=== PATIENT | female | born 1940 | race Caucasian/White ===

== ENCOUNTER → 2016-09-10 | Outpatient (CLI) | payer OTHER ==
[~2016-09-10] MED LIST: ACET-1256 PO; ACET-1311 PO; ASCA500 PO; ATV1 PO; CITA20TA9 PO; CLOP1TAB15 PO; MULT1CHW22 PO; NAPR-1169 PO; PRAV80TA2 PO; RXC5 PO; ULT50X PO
--- NOTE | 2016-09-10 09:58 | DIAGNOSTIC IMAGING REPORT ---
MRI LUMBAR SPINE W/O CONTRAST CLINICAL HISTORY: Low back pain with right leg radiculopathy. TECHNIQUE: Sagittal and axial T1, T2 and STIR images were obtained. COMPARISON STUDY: Intraoperative radiograph dated 05/14/2015 OBSERVATIONS: The vertebral bodies and posterior elements appear intact. There is no abnormal bony signal present to suggest a marrow replacement process. L1-2: There is a broadbase central disc protrusion minimally asymmetric to the left. There is mild spinal canal narrowing. There is no significant foraminal narrowing. L2-3: There is a broad-based circumferential disc protrusion minimally asymmetric to the right. There is mild spinal canal narrowing. There is no significant foraminal narrowing. L3-4: There are postsurgical changes of a discectomy and spinal fusion. There are postlaminectomy changes. There is no significant spinal or foraminal stenosis. L4-5: There are postlaminectomy changes. No focal herniations are visualized. There is no significant spinal foraminal stenosis L5-S1: There are postsurgical changes of a discectomy. There is a grade 1 spondylolisthesis of L5 on S1. There is a probable right paracentral disc protrusion. Without intravenous contrast is difficult to differentiate recurrent disc herniations from postsurgical epidural fibrosis. There is evidence of a spinal fusion with pedicle screw fixation with pedicle screws at the L3, L4, L5, and S1 levels. The conus medullaris and cauda equina appear normal. IMPRESSION: 1. Postsurgical changes of higher spinal surgery with posterior laminectomies. There are postsurgical changes of discectomies and interbody fusions at the L3-4 and L5-S1 levels. There is posterior pedicle screw fixation with L3-S1 pedicle screws. 2. Probable right paracentral disc protrusion at the L5-S1 level. 3. Small broad-based disc protrusions the L1-2, L2-3 levels with secondary mild spinal canal narrowing Electronically signed by: Rip Gongora M.D. 09/10/2016 9:57 AM Dictated Date/Time: 09/10/2016 9:46 AM
== END | disposition home or self-care (01) ==
LOC: C.MRIBC 08:38
PROVIDERS: ATTEND Pain Medicine Interventional Pain Medicine
DX: M54.16 Radiculopathy, lumbar region (principal)

== ENCOUNTER 2017-02-23 05:22 | Inpatient (IN) | payer OTHER ==
[2017-01-28 11:15] VITALS: BMI 42.0
--- NOTE | 2017-01-28 11:44 | PAT Medication Instructions ---
Service Date Jan 28, 2017. Current Home Medication List Ascorbic Acid (Vitamin C), 500 MG PO QAM Citalopram Hydrobromide (Celexa), 20 MG PO QPM Clopidogrel (Plavix), 75 MG PO QPM Multiple Vitamins W/ Minerals (Multivitamins), 1 TAB PO QAM Naproxen (Naprosyn), 500 MG PO BID PRN for Pain Pravastatin Sodium (Pravastatin Sodium), 1 TAB PO QPM Medication Instructions For Your Scheduled Surgery -Instructions to be given by prescribing physician: Clopidogrel (Plavix), 75 MG PO QPM - Hold the following medications the morning of surgery: Naproxen (Naprosyn), 500 MG PO BID PRN for Pain (otherwise okay to continue per surgeon) Ascorbic Acid (Vitamin C), 500 MG PO QAM Multiple Vitamins W/ Minerals (Multivitamins), 1 TAB PO QAM - Take the following medications as scheduled the night before surgery: Citalopram Hydrobromide (Celexa), 20 MG PO QPM Pravastatin Sodium (Pravastatin Sodium), 1 TAB PO QPM Nothing to eat or drink after midnight If you have any questions please call us at [phone] or [phone] or [phone]
[2017-01-28 12:05] LABS: BASO % 0.1 %; BASO ABS # 0.01 K/uL (0-0.2); COMPLETE YES; EOS % 3.9 %; HEMATOCRIT 45.2 % (37-47); IG% 0.3 %; LYMPH % 22.2 %; LYMPH ABS # 1.66 K/uL (1.2-3.4); MEAN CELL VOLUME 89.2 fL (80-100); MEAN CORPUSCULAR HEMOGLOBIN 29.2 pg (25-34); MEAN CORPUSCULAR HGB CONC 32.7 g/dl (32-36); MEAN PLATELET VOLUME 11.5 fL (7.4-10.4); MONO % 11.9 %; NEUT % 61.6 %; PLATELET COUNT 248 K/uL (130-400); RED BLOOD COUNT 5.07 M/uL (4.2-5.4); WHITE BLOOD COUNT 7.49 K/uL (4.8-10.8)
[2017-01-28 12:16] LABS: BUN/CREATININE RATIO 20.5 (10-20); CALCIUM 9.1 mg/dl (8.5-10.1); CREATININE 0.85 mg/dl (0.60-1.20); POTASSIUM 3.9 mmol/L (3.5-5.1)
--- NOTE | 2017-01-28 12:31 | DIAGNOSTIC IMAGING REPORT ---
TWO VIEW CHEST CLINICAL HISTORY: Preoperative examination. FINDINGS: PA and lateral chest radiographs are compared to study dated 04/23/2015. The examination is degraded by large body habitus. The heart is top normal for projection. There is atherosclerotic calcification of the thoracic aorta. Chronic interstitial thickening is unchanged. There is mild bibasilar atelectasis. The lungs and pleural spaces are otherwise clear. There is no pneumothorax. The skeletal structures are osteopenic. The bony thorax appears intact. Degenerative change is noted throughout the thoracic spine. IMPRESSION: No active disease in the chest. Electronically signed by: Collins Zamora M.D. 01/28/2017 12:30 PM Dictated Date/Time: 01/28/2017 12:29 PM
[2017-01-28 12:35] LABS: URINE APPEARANCE CLEAR (CLEAR); URINE BILIRUBIN NEG (NEG); URINE COLOR DK YELLOW; URINE EPITHELIAL CELL AUTO >30 /lpf (0-5); URINE NITRITE NEG (NEG); URINE SPECIFIC GRAVITY 1.027 (1.000-1.030); UROBILINOGEN NEG (NEG)
[2017-01-28 12:44] LABS: MANUAL MICROSCOPIC REQUIRED? NO; REVIEW REQ? YES
[2017-02-23] VITALS (9 sets, daily range): BP systolic 113–162; BP diastolic 69–85; PULSE 77–102; TEMP 36.3–36.8; O2SAT 96–98; Ht 152.4 cm; Wt 98.8 kg
[~2017-02-23] VITALS: Ht 152.4 cm; Wt 98.8 kg
[~2017-02-23 05:22] MED LIST changes: -ACET-1256 PO; -ACET-1311 PO; -ATV1 PO; -RXC5 PO; -ULT50X PO
[2017-02-23] MEDS ORDERED: CEFAZOLIN 2000 MG/60 ML D5W IV SCH (06:00)
[2017-02-23] MEDS ORDERED: LACTATED RINGER'S 1000ML 1,000 ML IV SCH (06:00)
[2017-02-23] MEDS ORDERED: ACET-1311 PO (06:47)
[2017-02-23] MEDS ORDERED: FENTANYL CITRATE INJ 50 MCG/1 ML 2 ML VIAL ONE ×5 (06:48→10:13)
[2017-02-23] MEDS ORDERED: MIDAZOLAM HCL 1 MG/ML 2ML VIAL ONE (06:48)
[2017-02-23] MEDS ORDERED: ALBUMIN HUMAN 5% 12.5 GM/250 ML VIAL IV ONE ×2 (06:52→11:05)
[2017-02-23] MEDS ORDERED: THROMBIN FOR SOLN 20000 UNIT KIT ONE (06:54)
[2017-02-23] MEDS ORDERED: SODIUM CHLORIDE 0.9% PF 50 ML VIAL ONE (06:54)
[2017-02-23] MEDS ORDERED: BACITRACIN 50000 UNIT VIAL ONE (06:54)
[2017-02-23] MEDS ORDERED: BUPIVACAINE/EPINEPHRINE 0.5% MPF 1:200,000 10 ML VIAL ONE (06:54)
[2017-02-23] MEDS ORDERED: EpHEDrine SULFATE INJ 50 MG/ML AMP IV PRN (07:30)
[2017-02-23] MEDS ORDERED: ATROPINE SULFATE 0.1 MG/ML 5ML SYR IV PRN (07:30)
[2017-02-23] MEDS ORDERED: FENTANYL CITRATE INJ 50 MCG/1 ML 2 ML VIAL IV PRN (07:30)
[2017-02-23] MEDS ORDERED: HYDROmorphone INJ 1 MG/ML SYR IV PRN (07:30)
[2017-02-23] MEDS ORDERED: ONDANSETRON INJ 2 MG/ML 2 ML VIAL IV PRN ×2 (07:30→11:15)
--- NOTE | 2017-02-23 07:38 | History & Physical Bridge Note ---
H&P Re-Evaluation Bridge Note: I have examined the patient, reviewed the History & Physical and in the interval since the performance of the History & Physical I have noted the following changes of clinical significance: No changes noted
--- NOTE | 2017-02-23 07:40 | History and Physical ---
History & Physical Date Feb 23, 2017. Chief Complaint Back and leg pain History of Present Illness The patient is a 76 year old female with complaints of back and leg pain Additional History Hepatic Disease: No Endocrine Disorder: No Kidney Disease: No Hypertension: No Heart Disease: No Bleeding Tendencies: No Infectious Diseases: No Allergies Coded Allergies: Aspirin (Verified Adverse Reaction, Unknown, GI UPSET, 02/23/17) Hydrocodone (Verified Adverse Reaction, Unknown, NAUSEA, 02/23/17) Oxycodone (Verified Adverse Reaction, Unknown, NAUSEA, 02/23/17) Home Medications Scheduled Ascorbic Acid (Vitamin C), 500 MG PO QAM Citalopram Hydrobromide (Celexa), 20 MG PO QPM Clopidogrel (Plavix), 75 MG PO QPM Multiple Vitamins W/ Minerals (Multivitamins), 1 TAB PO QAM Pravastatin Sodium (Pravastatin Sodium), 1 TAB PO QPM Scheduled PRN Acetaminophen (Tylenol), 650 MG PO Q4 PRN for Pain or Fever Naproxen (Naprosyn), 500 MG PO BID PRN for Pain Physical Examination Skin: warm/dry, no rash Eyes: normal inspection, EOMI, sclerae normal ENT: normal ENT inspection, pharynx normal Head: normocephalic, atraumatic Neck: supple, no adenopathy, trachea midline Respiratory/Chest: lungs clear, normal breath sounds, no respiratory distress Cardiovascular: regular rate, rhythm, no edema, no murmur Abdomen / GI: normal bowel sounds, non tender Back: normal inspection Extremities: normal inspection, normal range of motion Neurologic/Psych: no motor/sensory deficits, alert, normal reflexes, oriented x 3 Plan of Treatment Removal of instrumentation L3 to S1 with decompression L1-2 and fusion T12 bilateral iliac bolts
[2017-02-23] MEDS ORDERED: HYDROmorphone INJ 2 MG/ML SYR/VIAL ONE ×3 (08:07→11:30)
[2017-02-23] MEDS ORDERED: ONDANSETRON INJ 2 MG/ML 2 ML VIAL ONE ×2 (09:16→11:31)
[2017-02-23] MEDS ORDERED: PROPOFOL IV EMULSION 10 MG/ML 20 ML VIAL IV ONE (09:16)
[2017-02-23] MEDS ORDERED: ROCURONIUM BROMIDE 10 MG/ML 5 ML VIAL IV ONE (09:16)
[2017-02-23] MEDS ORDERED: RANITIDINE HCL 25 MG/ML INJ ONE (09:16)
[2017-02-23] MEDS ORDERED: LIDOCAINE HCL 2% 2 ML VIAL (20MG/ML) ONE (09:16)
[2017-02-23] MEDS ORDERED: DEXAMETHASONE SOD INJ 4 MG/ML VIAL ONE (09:16)
[2017-02-23] MEDS ORDERED: EpHEDrine SULFATE 50MG/5ML SYR ONE (10:14)
[2017-02-23] MEDS ORDERED: PHENYLEPHRINE 100MCG/ML 5ML SYR ONE (10:14)
[2017-02-23] MEDS ORDERED: FLOSEAL HEMOSTATIC MATRIX 10ML TOP ONE (10:47)
[2017-02-23] MEDS ORDERED: SODIUM CHLORIDE 0.9% 1000ML 1,000 ML IV SCH (11:13)
[2017-02-23] MEDS ORDERED: MAGNESIUM HYDROXIDE SUSP 30 ML UDC PO PRN (11:15)
[2017-02-23] MEDS ORDERED: ALUMINUM/MAGNESIUM SUSP 30 ML UDC PO PRN (11:15)
[2017-02-23] MEDS ORDERED: METOCLOPRAMIDE HCL INJ 5 MG/ML 2 ML VIAL IV PRN (11:15)
[2017-02-23] MEDS ORDERED: BISACODYL 10 MG SUPP PR PRN (11:15)
[2017-02-23] MEDS ORDERED: LORAZEPAM 0.5 MG TAB PO PRN (11:15)
[2017-02-23] MEDS ORDERED: DO NOT ADMINISTER PNEUMOCOCCAL VACCINE PRN ×2 (11:15)
[2017-02-23] MEDS ORDERED: FAMOTIDINE 20 MG TAB PO PRN (11:15)
[2017-02-23] MEDS ORDERED: PROMETHAZINE HCL INJ 12.5 MG in SODIUM CHLORIDE 0.9% 50ML 50 ML IV PRN (11:15)
[2017-02-23] MEDS ORDERED: ACETAMINOPHEN 500 MG TAB PO PRN (11:15)
[2017-02-23] MEDS ORDERED: LORAZEPAM INJ 0.5 MG in SYRINGE 0 ML IV PRN (11:15)
[2017-02-23] MEDS ORDERED: hydrOXYzine HCL 25 MG TAB PO PRN (11:15)
[2017-02-23] MEDS ORDERED: ACETAMINOPHEN IV 100 ML IV PRN (11:15)
[2017-02-23] MEDS ORDERED: DO NOT ADMINISTER FLU VACCINE PRN ×3 (11:15)
[2017-02-23] MEDS ORDERED: NALOXONE HCL 0.4 MG/1 ML VIAL/CARP IV PRN ×2 (11:15)
[2017-02-23] MEDS ORDERED: SOD PHOSPHATE/SOD BIPHOSPHATE ENEMA 132 ML BTL PR PRN (11:15)
[2017-02-23] MEDS ORDERED: NEOSTIGMINE METHYLSULFATE 1 MG/ML 10ML VIAL ONE (11:31)
[2017-02-23] MEDS ORDERED: CEFAZOLIN SOD 1 GM VIAL ONE (11:31)
[2017-02-23] MEDS ORDERED: GLYCOPYRROLATE INJ 0.2 MG/ML VIAL ONE (11:31)
[2017-02-23] MEDS ORDERED: KETOROLAC TROMETHAMINE 30 MG/ML VIAL ONE (11:31)
[2017-02-23] MEDS ORDERED: HYDROmorphone HCL 0.5MG/ML 50 ML CASSETTE ONE (11:45)
[2017-02-23] MEDS ORDERED: NURSING VERBAL MED ORDER ONE (12:00)
--- NOTE | 2017-02-23 12:04 | DIAGNOSTIC IMAGING REPORT ---
Radiology LUMBAR SPINE 2 OR 3 VIEW CLINICAL HISTORY: 76 years-old Female presenting with L1-L2 [id number] FUSION/L3-S1 REMOVAL. TECHNIQUE: 5 fluoroscopic spot image(s) obtained as part of an intraoperative procedure. COMPARISON: 05/14/2015. FINDINGS/IMPRESSION: Postsurgical changes of transpedicular screw and derrick fixation of the lumbar spine, which now bridges to the sacrum. Interbody spacers again noted. Grossly normal alignment. Please see surgical report for further details. Fluoroscopy dosage (mGy): Not available. Fluoroscopy time: 32 seconds. Number of fluoroscopic spot images: 5. Electronically signed by: David Barrera M.D. 02/23/2017 12:03 PM Dictated Date/Time: 02/23/2017 12:02 PM
[2017-02-23 12:05] LABS: HEMATOCRIT 34.1 % (37-47)
--- NOTE | 2017-02-23 12:09 | [facility] Operative Report ---
Operative Report Operative Date Feb 23, 2017. Pre-Operative Diagnosis Spinal Stenosis Post-Operative Diagnosis Spinal Stenosis Procedure(s) Performed #1 removal of posterior segmental instrumentation L3 to S1. #2 expiration of fusion L3 to S1. #3 lumbar decompression medial facetectomies foraminotomies L1 to L2 3. #4 posterior spinal fusion T12 to L3. #5 placement bilateral SI joint fusion. #6 placement of posterior segmental transportation including bilateral iliac bolts T12 to S1. #7 interbody fusion L2 3. #8 placement peek cage 11 x 22 mm at L2-3. #9 placement of locally harvested morcellized autograft in the posterior gutters. #10 placement infuse collagen sponge, mask graft the posterior lateral gutters Komal bone graft in the interbody space. Surgeon Dr Le Meat Selector Surgeon(s) Amelia Montenegro PA-C Estimated Blood Loss 1000ML Findings Severe spinal stenosis Specimens As per Surgeon A. Lumbar Spine Explants Description of Procedure Patient was met with preoperatively case discussed all questions are dressed. After informed consent patient was taken to the operative suite after intubation placed in a prone position the [place] table top Cel[place]ino frame. All bony promises well-padded eyes inspected to ensure no external pressure. The thoracal lumbar spine prepped and draped nostril fashion. Sharp dissection with the assistance of Bovie cautery was performed onto an exposing the lamina and transverse processes of T12 L1 L2 the instrumentation from L3 to S1 bilaterally. I proceeded remove the hardware bilaterally L3 to S1. Explored the fusion mass noting it to be intact. Then performed a complete laminectomy of L2 and L3 addressing severe lateral recessed foraminal disease. Pedicle screws were then placed in T12 L1 L2 L3 L4 S1 and bilateral iliac bolts placed with the assistance of fluoroscopy. Through a transforaminal approach on the right a complete discectomy of L2-3 was performed and plate created to subcortical bleeding bone and a limb by 22 mm peek cage filled with Komal bone graft tapped in position. Purposes rods were then cut contoured and locked and final position bilaterally. Transverse processes of T12-L1 L2-L3 in the bilateral SI joints were then burred to subcortical bleeding bone. Infuse collagen sponge mask graft locally harvested morcellized autograft was placed both in the SI joints as well as the posterior lateral gutters. A cross-link was locked into position. 15 round SHAR drain inserted. Incision then closed with 1 Vicryl in the fascia 2-0 Vicryl subcutaneously 4-0 Monocryl for final skin closure. Sterile dressing sterile strips placed patient awakened taken to PACU in stable condition. Please note Amelia Diez was present at the entire procedure involved in patient positioning complex portions of the procedure and final skin closure. I attest to the content of the Intraoperative Record and any orders documented therein. Any exceptions are noted below.
[2017-02-23] MEDS ORDERED: PROMETHAZINE HCL INJ 12.5 MG in SODIUM CHLORIDE 0.9% 50ML 50 ML IV SCH (12:15)
[2017-02-23] MEDS ORDERED: ESMOLOL HCL 10 MG/ML 10 ML VIAL ONE (12:37)
--- NOTE | 2017-02-23 12:39 | Anesthesiology Progress Note ---
Anesthesia Post Op Note Date & Time Feb 23, 2017 at 12:38 Vital Signs Pain Intensity: 0 Vital Signs Past 12 Hours Date Time Temp Pulse Resp B/P (MAP) Pulse Ox O2 Delivery O2 Flow Rate FiO2 02/23/17 12:30 36.0 93 18 139/63 98 Nasal Cannula 4 02/23/17 12:20 96 18 132/66 96 Nasal Cannula 4 02/23/17 12:10 93 18 143/83 95 Nasal Cannula 4 02/23/17 12:00 103 18 142/71 95 Oxymask 10 02/23/17 11:50 112 18 158/78 94 Oxymask 10 02/23/17 11:44 36.5 89 16 139/78 10 Oxymask 02/23/17 06:07 36.8 22 162/70 96 Room Air 02/23/17 05:54 36.8 77 22 162/70 96 Room Air Notes Mental Status: alert / awake / arousable, participated in evaluation Pt Amnestic to Procedure: Yes Nausea / Vomiting: adequately controlled Pain: adequately controlled Airway Patency, RR, SpO2: stable & adequate BP & HR: stable & adequate Hydration State: stable & adequate Anesthetic Complications: no major complications apparent
[2017-02-23] MEDS: HYDROmorphone HCL 0.5MG/ML 50 ML CASSETTE IV PRN ×2 (13:04→23:08)
[2017-02-23] MEDS: SODIUM CHLORIDE 0.9% 1000ML 1,000 ML IV SCH ×2 (13:30→20:16)
[2017-02-23] MEDS: CEFAZOLIN IV 2,000 MG in DEXTROSE 5% 50ML 50 ML IV SCH (15:54)
[2017-02-23] MEDS: DEXAMETHASONE INJ 6 MG in SYRINGE 0 ML IV SCH (17:43)
[2017-02-23] MEDS: DOCUSATE SODIUM/SENNA 50/8.6MG TAB PO SCH (20:18)
[2017-02-23] MEDS: CITALOPRAM 20 MG TAB PO SCH (20:23)
[2017-02-23] MEDS: PRAVASTATIN SOD 40 MG TAB PO SCH (20:23)
[2017-02-24] MEDS: CEFAZOLIN IV 2,000 MG in DEXTROSE 5% 50ML 50 ML IV SCH (00:15)
[2017-02-24] MEDS: SODIUM CHLORIDE 0.9% 1000ML 1,000 ML IV SCH (00:15)
[2017-02-24 00:28] VITALS: O2SAT 96
[2017-02-24] MEDS: DEXAMETHASONE INJ 6 MG in SYRINGE 0 ML IV SCH ×2 (01:59→10:00)
[2017-02-24 03:05] VITALS: BP 126/72; PULSE 93; TEMP 36.8; O2SAT 96
[2017-02-24 05:53] LABS: COMPLETE YES; HEMATOCRIT 27.9 % (37-47); IG% 0.3 %; LYMPH % 4.2 %; LYMPH ABS # 0.72 K/uL (1.2-3.4); MEAN CORPUSCULAR HEMOGLOBIN 30.3 pg (25-34); MEAN CORPUSCULAR HGB CONC 33.7 g/dl (32-36); MEAN PLATELET VOLUME 10.8 fL (7.4-10.4); MONO % 5.8 %; NEUT % 89.7 %; PLATELET COUNT 196 K/uL (130-400); WHITE BLOOD COUNT 17.31 K/uL (4.8-10.8)
[2017-02-24] MEDS ORDERED: HYDROmorphone INJ 0.5 MG/0.5 ML SYR IV PRN (06:00)
[2017-02-24] MEDS ORDERED: DC PCA SCH (06:00)
[2017-02-24] MEDS ORDERED: HYDROmorphone INJ 1 MG/ML SYR IV PRN (06:00)
[2017-02-24] MEDS ORDERED: NURSING DECISION MEDICATION ORDER SCH (06:30)
[2017-02-24 06:38] LABS: BUN/CREATININE RATIO 18.3 (10-20); CALCIUM 7.7 mg/dl (8.5-10.1); CREATININE 0.76 mg/dl (0.60-1.20); POTASSIUM 4.4 mmol/L (3.5-5.1)
[2017-02-24 08:14] VITALS: BP 101/70; PULSE 98; TEMP 37.1; O2SAT 93
[2017-02-24] MEDS ORDERED: ULT50X PO (10:27)
--- NOTE | 2017-02-24 10:28 | Discharge Instructions ---
Discharge Instructions Date of Service Feb 24, 2017. Admission Reason for Admission: Lumbar Spinal Stenosis Discharge Discharge Diagnosis / Problem: lumbar stenosis Discharge Goals Goal(s): Improve function Activity Recommendations Activity Limitations: per Instructions/Follow-up section . Instructions / Follow-Up Instructions / Follow-Up ACTIVITY RECOMMENDATIONS: SELF CARE INSTRUCTIONS AFTER THORACIC/LUMBAR FUSIONS 1. You may walk to your tolerance. It is good exercise for your legs and back. Expect some back and intermittent leg aches and pains. 2. You may perform "counter-top" level activities (make a sandwich, linda with a project, etc.). 3. No bending or lifting of more than 10 pounds or back twisting of any nature (roll like a log when turning in bed). 4. You may ride in a car for 20-30 minutes at a time. No driving until after your first visit with your doctor. 5. Frequent changes of position and restricting sitting to 30 minutes at a time will help limit the amount of back spasms and stiffness you may experience. 6. You may discontinue the use of ambulatory aids (cane, crutches, etc.) once your strength and confidence allow. 7. You may dictating machine transcriber the shower and let water strike your incision when you arrive home at least once daily. Do not take a tub bath, sit in a hot tub or go into a swimming pool until after your first recheck in the office. SPECIAL CARE INSTRUCTIONS: VERY IMPORTANT TO READ AND REVIEW A. Your surgical incision has been closed with a cosmetic suture under the skin that will dissolve in about 6 weeks. In 14 days, you can use a pair of clean scissors and cut the suture that is left outside of the skin at the ends of your incision. 1. The small skin tapes can be removed 7 days after surgery if they have not fallen off by that point. 2. You may keep the wound open to air as much as possible to promote healing after post-op day number 5 unless told otherwise by your doctor. 3. If you think the wound looks like it is becoming infected (redness or worsening drainage) and/or you are experiencing fever, chill or worsening back pain and muscle spasms, contact the office so that we may evaluate you as soon as possible. B. Complications are uncommon, but please contact us if you have any signs or symptoms of: 1. wound infection (fever higher than 102.5 degrees F, redness, separation of wound, drainage, or increasing pain from the incision) 2. blood clots in legs (pain, swelling, redness and warmth in legs) 3. urinary tract infection (fever higher than 102.5 degrees F, burning upon urination or increased frequency of urination) 4. nerve problems (inability to walk on your toes or heels, numbness, loss of bowel or bladder control) 5. any other symptoms that concern you C. Please call the office at if you have any concerns or questions about your operation or recovery. D. No smoking! Smoking drastically decreases the chance of a solid fusion. E. Do not take any anti-inflammatory medications (Indocin, Advil, Motrin, Aspirin, Naprosyn, etc.) as these may inhibit the chance of a solid fusion. Tylenol is okay to take for pain. MANAGING PAIN AFTER SPINAL SURGERY 1. Narcotic medication is intended for short-term use and will be provided for surgical pain. Surgical pain usually lasts for a period of 4-6 weeks. Narcotic medication includes Percocet, Vicodin, Darvocet, Tylenol #3 or Lortab. 2. Longer-term pain is more appropriately treated with non-narcotic medication such as Tylenol ES. 3. Muscle spasm is not appropriately treated with narcotics. Muscle relaxers such as Soma, Flexeril or Skelaxin can be used along with Tylenol ES. 4. Remember that we all live with some "aches and pains". This is not unusual or uncommon after an injury or as we get older. a. Back pain is expected and may include muscle spasms for 4 to 6 weeks after surgery. The pain should gradually improve. If the pain worsens for no apparent reason, please contact the office. b. Intermittent leg pain may also be experienced and should not be concerned about unless it worsens for no apparent reason. If so, please contact the office. 5. We will provide appropriate medication within the normal guidelines of their prescribed use. We will also be very cautious and aware of potential abuse and extended duration of patients' medication needs. a. Pain medications are for your comfort and to assist with sleep and rest so that the tissue can heal. They are not provided in order to return to normal activity and should not be used through the day. To do so or worsening pain at night can result from ongoing tissue damage and development of tolerance to the prescribed medicine. 6. Please allow 2-3 days to process refills. Prescriptions will not be mailed but must be picked up at the office. FOLLOW UP VISIT: Keep your scheduled follow-up appointment. Any questions, please call the office at . Current Hospital Diet Patient's current hospital diet: Regular Diet Discharge Diet Recommended Diet: Regular Diet Procedures Procedures Performed: #1 removal of posterior segmental instrumentation L3 to S1. #2 expiration of fusion L3 to S1. #3 lumbar decompression medial facetectomies foraminotomies L1 to L2 3. #4 posterior spinal fusion T12 to L3. #5 placement bilateral SI joint fusion. #6 placement of posterior segmental transportation including bilateral iliac bolts T12 to S1. #7 interbody fusion L2 3. #8 placement peek cage 11 x 22 mm at L2-3. #9 placement of locally harvested morcellized autograft in the posterior gutters. #10 placement infuse collagen sponge, mask graft the posterior lateral gutters Komal bone graft in the interbody space. Pending Studies Studies pending at discharge: no Medical Emergencies . Who to Call and When: Medical Emergencies: If at any time you feel your situation is an emergency, please call 911 immediately. . Non-Emergent Contact Non-Emergency issues call your: Primary Care Provider . "Provider Documentation" section prepared by Jalen Le. . VTE Core Measure Inpt VTE Proph given/why not?: Contreras Funez, SCD's
[2017-02-24 11:45] VITALS: BP 121/69; PULSE 95; TEMP 36.8; O2SAT 92
--- NOTE | 2017-02-24 12:51 | Clinical Documentation Query ---
CLINICAL DOCUMENTATION QUERY QUERY 1 OF 2 In your clinical opinion is this patient being managed for: ( ) Morbid obesity with a BMI 42.5 ( ) Other explanation of clinical findings (Please Explain) ( ) Unable to determine (Please Define) ( ) Need to Discuss ( ) Not Agree A significantly high ( > 40) BMI will impact the severity of illness and risk of mortality of your patient. QUERY 2 OF 2 In your clinical opinion is this patient being managed for: ( ) Acute blood loss anemia ( ) Other explanation of clinical findings (Please Explain) ( ) Unable to determine (Please Define) ( ) Need to Discuss ( ) Not Agree The medical record reflects the following clinical findings, treatment, and risk factors. Clinical Indicators: Baseline HGB/HCT 14.8/45.2 dropped to 9.4/27.9. EBL 1000 ml and SHAR drain 270 ml Treatment: Monitor, serial H&H Risk Factors: Age, surgical blood loss Please clarify and document your clinical opinion in the progress notes and discharge summary. Terms such as "probable", "suspected", "likely", "questionable", "possible", or "still to be ruled out" are acceptable. IF IN AGREEMENT, YOU MUST DOCUMENT ABOVE DIAGNOSTIC STATEMENT IN DAILY PROGRESS NOTES AND DISCHARGE SUMMARY. This document is not part of the patient's record. Thank You, Dia Berger RN [phone]
--- NOTE | 2017-02-24 13:20 | Progress Note ---
Progress Note Date of Service Feb 24, 2017. Progress Note Patient's is postop day #1. Back pain is controlled. Leg pain improved. Vital signs are stable. On exam she is in chair at bedside as good strength testing appears comfortable. Assessment status post lumbar decompression fusion replant this time we'll initiate physical therapy advance her bowel regimen anticipate home the next few days.
[2017-02-24 15:46] VITALS: BP 140/103; PULSE 99; TEMP 36.9; O2SAT 93
[2017-02-24] MEDS: DOCUSATE SODIUM/SENNA 50/8.6MG TAB PO SCH (20:56)
[2017-02-24] MEDS: PRAVASTATIN SOD 40 MG TAB PO SCH (20:57)
[2017-02-24] MEDS: CITALOPRAM 20 MG TAB PO SCH (20:57)
[2017-02-24 22:55] VITALS: BP 143/77; PULSE 97; TEMP 36.8; O2SAT 94
[2017-02-25] MEDS: TRAMADOL HCL 50 MG TAB PO PRN ×2 (04:31→13:40)
[2017-02-25] MEDS: POLYETHYLENE (MIRALAX) 17 GM PACK PO SCH ×2 (05:44→11:19)
[2017-02-25 07:41] VITALS: BP 137/81; PULSE 90; TEMP 36.7; O2SAT 94
[2017-02-25 10:22] VITALS: BP 137/81; PULSE 90; TEMP 36.7; O2SAT 94
--- NOTE | 2017-02-25 12:46 | Discharge Summary ---
Orthopedic Discharge Summary Admission Date/Reason Feb 23, 2017 at 07:30 Lumbar Spinal Stenosis. Discharge Date/Disposition Feb 25, 2017 Home Diagnosis Principal Diagnosis: Lumbar spinal stenosis Admission Physical Exam As per Admitting History & Physical. Hospital Course Patient 1 lumbar decompression fusion tolerated this well as taken to the orthopedic floor postoperatively. Postop day 1 she was up in amatory progressed nicely to postoperative day #2 was socially discharge home with home health. Discharge orders and instructions can be found the chart for further review. Discharge Instructions Please refer to the electronic Patient Visit Report (Discharge Instructions) for additional information.
== END 2017-02-25 14:16 | disposition home health service (06) | DRG 460 ==
LOC: C.ACU 05:22 → C.3E 07:30 → ENRESERV 12:28
PROVIDERS: ADMIT Orthopaedic Surgery Orthopaedic Surgery of the Spine; ATTEND Orthopaedic Surgery Orthopaedic Surgery of the Spine
PROC: 0SG80ZZ (ICD-10-PCS; principal; 2017-02-23 07:45)
PROC: 0SG70ZZ (ICD-10-PCS; principal; 2017-02-23 07:45)
DX: M48.07 Spinal stenosis, lumbosacral region (principal)